=== PATIENT | female | born 1980 | race Caucasian/White ===

== ENCOUNTER 2017-03-31 12:26 | Emergency (ER) | payer OTHER, SELFPAY ==
[~2017-03-31] VITALS: Ht 157.5 cm; Wt 55.3 kg
[~2017-03-31 12:26] MED LIST: ACET50TA PO; BENZ5TA PO; IBUP80TA PO; REME15TA PO; RISP1TAB3 PO; VITAPRTA PO
[2017-03-31] MEDS ORDERED: IBUP80TA PO (12:34)
[2017-03-31] MEDS ORDERED: ONDANSETRON 4MG/2ML VIAL (J2405) IV ONE ×2 (13:30→18:00)
[2017-03-31] MEDS ORDERED: NS 1,000 ML IV ONE (13:30)
[2017-03-31] MEDS ORDERED: FAMOTIDINE IV BAG 20 MG in APPROPRIATE DILUENT 1 EA IV ONE (13:30)
[2017-03-31 13:45] LABS: BASO % 0.2 % (0.0-1.0); EOS # 0.2 K/mm3 (0.0-0.50); LARGE UNSTAINED CELL # 0.1 K/mm3 (0.0-0.4); LARGE UNSTAINED CELL % 0.6 % (0.0-4.0); LYMPH % 9.7 % (24.0-44.0); MEAN CORPUSCULAR HEMOGLOBIN 28.6 pg (27.0-33.0); MEAN CORPUSCULAR HGB CONC 32.8 g/dl (32.0-36.5); MEAN CORPUSCULAR VOLUME 87.3 fl (80.0-96.0); MONO # 0.1 K/mm3 (0.0-0.8); MONO % 1.4 % (0.0-5.0); NEUTROPHILS # 8.1 K/mm3 (1.8-7.7); PLATELET COUNT, AUTOMATED 391 k/mm3 (150-450); RED CELL DISTRIBUTION WIDTH 12.5 % (11.5-14.5); WHITE BLOOD COUNT 9.4 K/mm3 (4.0-10.0)
[2017-03-31] MEDS ORDERED: MORPHINE 2 MG/ML 1ML SYRINGE IV ONE (13:45)
[2017-03-31 14:00] LABS: CONTROL LINE HCG INT CTR LINE PRESENT
[2017-03-31 14:08] LABS: ALBUMIN/GLOBULIN RATIO 1.32 (1.00-1.93); ALKALINE PHOSPHATASE 71 U/L (45-117); ALT/SGPT 15 U/L (12-78); ANION GAP 8 MEQ/L (8-16); AST/SGOT 10 U/L (15-37); BILIRUBIN,DIRECT 0.2 MG/DL (0.0-0.2); BILIRUBIN,TOTAL 0.9 MG/DL (0.2-1.0); BLOOD UREA NITROGEN 14 MG/DL (7-18); CARBON DIOXIDE LEVEL 23 MEQ/L (21-32); CHLORIDE LEVEL 104 MEQ/L (98-107); GLOMERULAR FILTRATION RATE > 60.0 (>60); GLUCOSE, FASTING 118 MG/DL (70-105); POTASSIUM SERUM 4.1 MEQ/L (3.5-5.1); SODIUM LEVEL 135 MEQ/L (136-145); TOTAL PROTEIN 8.8 GM/DL (6.4-8.2)
[2017-03-31] MEDS ORDERED: PROMETHAZINE INJ 25 MG/ML VIAL (J2550) IV ONE (15:00)
[2017-03-31] MEDS ORDERED: ZOFR4TAB3 PO (16:40)
[2017-03-31] MEDS ORDERED: ONDANSETRON 4 MG ORAL DISINTEGRATING TAB (S0181) PO ONE (19:00)
[2017-03-31 19:33] VITALS: BP 120/71
== END 2017-03-31 19:38 | disposition home or self-care (01) ==
LOC: M ED 12:26
DX: R11.2 Nausea with vomiting, unspecified (principal); Z20.9 Contact with and (suspected) exposure to unspecified communicable disease; F41.9 Anxiety disorder, unspecified; F17.200 Nicotine dependence, unspecified, uncomplicated; Z79.899 Other long term (current) drug therapy; Z88.6 Allergy status to analgesic agent
CPT/HCPCS: 36415; 80048; 80076; 81001; 83690; 84703; 85025; 96365; 96374; 96375; 96376; 99285; J2405

== ENCOUNTER 2017-04-03 11:15 | Emergency (ER) | payer OTHER ==
[~2017-04-03] VITALS: Ht 157.5 cm; Wt 56.8 kg
[~2017-04-03 11:15] MED LIST changes: +ZOFR4TAB3 PO
[2017-04-03] MEDS ORDERED: NS 500 ML IV ONE (12:00)
[2017-04-03] MEDS ORDERED: METOCLOPRAMIDE INJ 10MG/2ML VIAL (J2765) IV ONE (12:00)
[2017-04-03] MEDS ORDERED: MORPHINE 4 MG/ML 1ML SYRINGE IV ONE ×2 (12:00→13:45)
[2017-04-03 12:26] LABS: BASO % 0.4 % (0.0-1.0); EOS # 0.1 K/mm3 (0.0-0.50); EOS % 0.9 % (0.0-3.0); LARGE UNSTAINED CELL # 0.1 K/mm3 (0.0-0.4); LARGE UNSTAINED CELL % 1.4 % (0.0-4.0); LYMPH # 1.4 K/mm3 (1.5-4.5); MEAN CORPUSCULAR HEMOGLOBIN 29.6 pg (27.0-33.0); MEAN CORPUSCULAR HGB CONC 33.4 g/dl (32.0-36.5); MEAN CORPUSCULAR VOLUME 88.7 fl (80.0-96.0); MONO # 0.5 K/mm3 (0.0-0.8); MONO % 5.2 % (0.0-5.0); NEUTROPHILS # 7.9 K/mm3 (1.8-7.7); PLATELET COUNT, AUTOMATED 414 k/mm3 (150-450); RED CELL DISTRIBUTION WIDTH 12.1 % (11.5-14.5); WHITE BLOOD COUNT 10.2 K/mm3 (4.0-10.0)
[2017-04-03 12:49] LABS: ALBUMIN 4.6 GM/DL (3.2-5.2); ALBUMIN/GLOBULIN RATIO 1.15 (1.00-1.93); ALKALINE PHOSPHATASE 60 U/L (45-117); ALT/SGPT 14 U/L (12-78); AMYLASE 39 U/L (25-115); ANION GAP 6 MEQ/L (8-16); AST/SGOT 7 U/L (15-37); BILIRUBIN,DIRECT 0.2 MG/DL (0.0-0.2); BLOOD UREA NITROGEN 17 MG/DL (7-18); CALCIUM LEVEL 9.3 MG/DL (8.5-10.1); CARBON DIOXIDE LEVEL 30 MEQ/L (21-32); CHLORIDE LEVEL 102 MEQ/L (98-107); CREATININE FOR GFR 0.68 MG/DL (0.55-1.02); GLOMERULAR FILTRATION RATE > 60.0 (>60); GLUCOSE, FASTING 105 MG/DL (70-105); POTASSIUM SERUM 3.2 MEQ/L (3.5-5.1); SODIUM LEVEL 138 MEQ/L (136-145); TOTAL PROTEIN 8.6 GM/DL (6.4-8.2)
--- NOTE | 2017-04-03 12:53 | REP ---
Abdominal right upper quadrant ultrasound, emergency room request: There is no cholelithiasis, gallbladder wall thickening or pericholecystic fluid. There is no intrahepatic or extrahepatic biliary duct dilatation, the common duct measures 3.3 mm in diameter. The hepatic parenchyma is homogeneous. There are no hepatic masses. The visualized portion of the pancreatic head is unremarkable. The body and tail are obscured by bowel gas. There is no right renal hydronephrosis, calculus or mass. There is a septated 1.1 cm cyst at the mid pole and there is a 1.0 cm cyst at the lower. Impression: There are two right renal cysts. The pancreas is obscured by bowel gas. Otherwise, negative abdominal right upper quadrant ultrasound. Signed by Manolo Tong MD 04/03/2017 12:45 P
[2017-04-03 14:16] VITALS: BP 104/54
[2017-04-03] MEDS ORDERED: CIPR-249 PO (14:25)
[2017-04-03] MEDS ORDERED: FLAG500T PO (14:25)
[2017-04-03] MEDS ORDERED: ULTR50TA8 PO (14:25)
--- NOTE | 2017-04-03 14:47 | REP ---
CT ABDOMEN AND PELVIS WITH IV CONTRAST: 04/03/2017. Comparison: Right upper quadrant ultrasound today, CT abdomen and pelvis 07/31/2015. Clinical history: Right upper quadrant pain, negative ultrasound. Technique: The patient received a bolus of 100 mL Isovue 370 scanning through the abdomen and pelvis. Both coronal and sagittal reconstructions were provided. CT abdomen: The lung bases are clear. The heart is not enlarged. There is no pericardial thickening or effusion. I see no hiatal hernia, hepatomegaly or splenomegaly. No focal hepatic or splenic mass, intrahepatic biliary dilatation or ascites. Gallbladder is elongated up to 11.7 cm but not abnormally dilated in transverse or AP diameter and showing no calcified stone or mass. There is no pericholecystic fluid or wall thickening. Pancreas was grossly unremarkable and without ductal dilatation, stone, mass, adenopathy or adjacent fluid. Stomach is only partially filled without mass. Small bowel loops are fluid filled but not abnormally dilated. The right colon proximal transverse colon to just left of midline shows wall thickening and some minor infiltration of adjacent fat suggesting some colitis. There is no diverticulosis visible. Splenic flexure is well distended. Its distal region and proximal left colon show collapse and I could not exclude some mild colitis there The aorta is without aneurysm or dissection. There is no periaortic or other retroperitoneal pathologic sized lymphadenopathy. Adrenal glands were unremarkable. Kidneys show function without obstruction, stone, mass or cyst. No hydronephrosis or hydroureter and no ureteral stone. Lung window review of all CT slices in the abdomen and pelvis showed no perforation or free air. Bone windows show lumbar and lower thoracic vertebral levels, posterior elements and the visualized lower ribs all intact. There is no ventral hernia or umbilical hernia. CT pelvis: The uterus is tilted towards the right. Bilateral tubal clamps are noted as before. I do not see adnexal mass with fairly symmetric ovaries. Bladder is only minimally filled. There are numerous pelvic phleboliths. No bladder calcification, stone or mass. No distal ureteral dilatation or stone. There is no ventral or inguinal hernia in the pelvis or inguinal pathologic sized adenopathy. The proximal right colon and cecum show wall thickening and some edema adjacent suggesting colitis. The rectum and sigmoid show no inflammatory changes or signs of colitis/diverticulitis. No definite pelvic free fluid. The bone windows in the pelvis show no degenerative changes, destructive lesion or fracture. Impression: 1. Some thickening of the bowel wall of the cecum, right colon and transverse colon to the left of midline as well as some of the proximal left colon in a pattern that may reflect some colitis. I do not see evidence of diverticulosis or diverticulitis, ascites, abscess, perforation or free air. 2. Elongated gallbladder as anatomic variation. No calcified gallstone or mass. 3. No hepatosplenomegaly, adrenal or renal abnormality, pancreatic stomach or bony abnormality. 4. No hiatal hernia. Stomach collapsed. Small bowel loops fluid-filled but not abnormally dilated. No acute pelvic finding. Signed by Manuel Landeros MD 04/03/2017 03:30 P
--- NOTE | 2017-04-05 15:12 | ED PDOC ---
Post-Departure Follow-Up certified letter sent Yris Casillas MD Apr 05, 2017 15:12
== END 2017-04-03 15:01 | disposition home or self-care (01) ==
LOC: M ED 11:15
DX: K52.9 Noninfective gastroenteritis and colitis, unspecified (principal); R10.13 Epigastric pain; R11.2 Nausea with vomiting, unspecified; F41.9 Anxiety disorder, unspecified; F32.9 Major depressive disorder, single episode, unspecified; N28.1 Cyst of kidney, acquired; Z88.6 Allergy status to analgesic agent
CPT/HCPCS: 74177; 76705; 80048; 80076; 81001; 82150; 83690; 85025; 86140; 96361; 96374; 96375; 96376; 99283; J2765

== ENCOUNTER 2018-01-03 21:53 | Emergency (ER) | payer OTHER ==
[2018-01-03] MEDS: ACETAMINOPHEN TAB 650MG DOSE (2X325MG) PO (22:30)
[2018-01-04] MEDS: NORCO 5/325MG TABLET (BULK FOR ED) PO (00:15)
== END 2018-01-04 00:22 | disposition home or self-care (01) ==
LOC: M ED 01-04 00:22
DX: S09.90XA Unspecified injury of head, initial encounter (principal); S00.83XA Contusion of other part of head, initial encounter; Y04.8XXA Assault by other bodily force, initial encounter; Y92.099 Unspecified place in other non-institutional residence as the place of occurrence of the external cause; Y93.9 Activity, unspecified; Y99.9 Unspecified external cause status; Z88.8 Allergy status to other drugs, medicaments and biological substances
CPT/HCPCS: 70450

== ENCOUNTER → 2018-01-21 | Outpatient (CLI) | payer MEDICAID | LOC: M OUTALCOH 07:43 | DX: F11.20 Opioid dependence, uncomplicated (principal) ==

== ENCOUNTER 2018-02-03 10:36 | Outpatient (RCR) | payer MEDICAID | END 2018-02-13 | LOC: M OUTALCOH 02-06 10:00 | DX: F11.20 Opioid dependence, uncomplicated (principal); F17.200 Nicotine dependence, unspecified, uncomplicated ==

== ENCOUNTER 2018-02-17 09:38 | Outpatient (RCR) | payer MEDICAID | END 2018-03-15 | LOC: M OUTALCOH 09:38 | DX: F11.20 Opioid dependence, uncomplicated (principal); F17.200 Nicotine dependence, unspecified, uncomplicated ==

== ENCOUNTER 2018-03-18 14:04 | Outpatient (RCR) | payer MEDICAID | END 2018-04-15 | LOC: M OUTALCOH 14:04 | DX: F11.20 Opioid dependence, uncomplicated (principal); F17.200 Nicotine dependence, unspecified, uncomplicated ==

== ENCOUNTER → 2019-01-21 | Outpatient (REF) | payer OTHER ==
[~2019-01-21] MED LIST changes: -ACET50TA PO; +CIPR-249 PO; +FLAG500T PO; +MAPA500T2 PO; +ULTR50TA8 PO; +ZOFR4TAB14 PO; -ZOFR4TAB3 PO
[2019-01-21 17:20] LABS: BASO # 0.1 10^3/uL (0.0-0.2); BASO % 0.8 % (0.0-1.0); EOS # 0.2 10^3/uL (0.0-0.50); HEMATOCRIT 36.6 % (36.0-47.0); HEMOGLOBIN 11.8 g/dl (12.0-15.5); LYMPH % 28.4 % (24.0-44.0); MEAN CORPUSCULAR HEMOGLOBIN 28.9 pg (27.0-33.0); MEAN CORPUSCULAR HGB CONC 32.2 g/dl (32.0-36.5); MEAN CORPUSCULAR VOLUME 89.7 fl (80.0-96.0); MONO # 0.6 10^3/uL (0.0-0.8); MONO % 5.7 % (0.0-5.0); NEUTROPHILS # 6.5 10^3/uL (1.8-7.7); NEUTROPHILS % 62.5 % (36.0-66.0); PLATELET COUNT, AUTOMATED 316 10^3/uL (150-450); RED BLOOD COUNT 4.08 10^6/uL (4.00-5.40); WHITE BLOOD COUNT 10.4 10^3/uL (4.0-10.0)
[2019-01-21 17:21] LABS: ALBUMIN 4.1 GM/DL (3.2-5.2); ALT/SGPT 22 U/L (12-78); BILIRUBIN,TOTAL 0.5 MG/DL (0.2-1.0); BLOOD UREA NITROGEN 9 MG/DL (7-18); CALCIUM LEVEL 9.1 MG/DL (8.5-10.1); CARBON DIOXIDE LEVEL 29 MEQ/L (21-32); CHLORIDE LEVEL 106 MEQ/L (98-107); CHOLESTEROL LEVEL 168 MG/DL (<200); CHOLESTEROL RISK RATIO 3.054 (<5); CREATININE FOR GFR 0.59 MG/DL (0.55-1.30); FREE T4 0.91 NG/DL (0.76-1.46); GLOMERULAR FILTRATION RATE > 60.0 (>60); GLUCOSE, FASTING 79 MG/DL (70-100); HDL CHOLESTEROL 55 MG/DL (>40); LDL CHOLESTEROL 98 MG/DL (<100); NON-HDL-C 113 MG/DL; SODIUM LEVEL 139 MEQ/L (136-145); TOTAL PROTEIN 6.9 GM/DL (6.4-8.2); TRIGLYCERIDES LEVEL 76 MG/DL (<150)
[2019-01-21 18:08] LABS: HEMOGLOBIN A1c 5.6 %
== END ==
LOC: M SFHCPLAZ 14:50
PROVIDERS: ATTEND Nurse Practitioner Family
DX: Z13.228 Encounter for screening for other metabolic disorders (principal)

== ENCOUNTER → 2019-01-27 | Outpatient (CLI) | payer OTHER ==
--- NOTE | 2019-01-28 02:15 | REP ---
Clinical: Left hip pain. Technique: Neutral and frog lateral views of the left hip. Findings: Osseous structures, joint spaces, and surrounding soft tissues are normal. No acute fracture dislocation. No significant degenerative changes. Surrounding soft tissues are normal. Phleboliths noted in the pelvis. Impression: Age-appropriate, normal left hip radiographs. Electronically Signed by Kofi Garcia MD 01/28/2019 02:06 A
--- NOTE | 2019-01-28 02:42 | REP ---
Clinical: Back pain . Technique: AP, lateral, bilateral oblique, and coned-down views. Findings: Alignment and lordosis is maintained. The vertebral bodies including transverse process and spinous processes are intact and normal. There is no evidence for acute fracture / compression injury or subluxation. No evidence for spondylolysis or spondylolisthesis. No significant degenerative change is noted. Impression: Normal lumbosacral spine radiograph series. Electronically Signed by Kofi Garcia MD 01/28/2019 02:33 A
== END ==
LOC: M RAD 10:47
PROVIDERS: ATTEND Nurse Practitioner Family
DX: M54.5 Low back pain (principal); M25.552 Pain in left hip

== ENCOUNTER → 2019-02-04 | Outpatient (REF) | payer OTHER ==
[2019-02-06 14:11] LABS: HPV HYBRID CAPTURE II Negative (Negative)
== END ==
LOC: M SFHCPLAZ 11:40
PROVIDERS: ATTEND Nurse Practitioner Family
DX: Z12.4 Encounter for screening for malignant neoplasm of cervix (principal)

== ENCOUNTER → 2024-03-08 | Outpatient (REF) | payer OTHER | LOC: M LAB REF 18:29 | PROVIDERS: ATTEND Physician Assistant | DX: L03.031 Cellulitis of right toe (principal) ==

== ENCOUNTER → 2025-07-30 | Outpatient (CLI) | payer OTHER | LOC: M RAD 07:20 | DX: M79.661 Pain in right lower leg (principal) ==